=== PATIENT | female | born 1995 | race Caucasian/White ===

== ENCOUNTER 2017-06-26 06:36 | Day surgery (SDC) | payer BC ==
[2017-06-26] MEDS ORDERED: LR 1,000 ML IV ONE (06:44)
[2017-06-26] MEDS ORDERED: LIDOCAINE 1% 2 ML INJ ID PRN (06:44)
[2017-06-26] MEDS ORDERED: SILVER SULFADIAZINE 50 GM JAR TP ONE ×2 (07:06→08:15)
[2017-06-26] MEDS ORDERED: ACETIC ACID IRR SOLN 0.25% 1,000 ML BTL ONE (07:17)
[2017-06-26] MEDS ORDERED: MONSELS-FERRIC SUBSULFATE 8 GM SDV TP ONE (07:18)
[2017-06-26] MEDS ORDERED: POTASSIUM IODIDE/IODINE (LUGOL'S SOLN) 500 ML TP ONE (07:30)
--- NOTE | 2017-06-26 07:40 | PDANEPAE ---
ANE History of Present Illness laser of condyloma vulva ANE Past Medical History - Cardiovascular History Hx Hypertension: No Hx Arrhythmias: No Hx Chest Pain: No Hx Coronary Artery / Peripheral Vascular Disease: No Hx CHF / Valvular Disease: No Hx Palpitations: No Cardiovascular History Comment: pt states "she has a higher than normal resting hr" - Pulmonary History Hx COPD: No Hx Asthma/Reactive Airway Disease: No Hx Recent Upper Respiratory Infection: No Hx Oxygen in Use at Home: No Hx Sleep Apnea: No Sleep Apnea Screening Result - Last Documented: Negative - Neurologic History Hx Cerebrovascular Accident: No Hx Seizures: No Hx Dementia: No - Endocrine History Hx Diabetes: No - Renal History Hx Renal Disorders: No - Liver History Hx Hepatic Disorders: No - Neurological & Psychiatric Hx Hx Neurological and Psychiatric Disorders: Yes Neurological / Psychiatric History Comment: generalized anxiety disorder. adhd - Cancer History Hx Cancer: No - Congenital Disorder History Hx Congenital Disorders: No - GI History Hx Gastrointestinal Disorders: Yes Gastrointestinal History Comment: mother has ibs. diarrhea with stress - Other Health History Other Health History: wears glasses for distance only - Chronic Pain History Chronic Pain: No - Surgical History Prior Surgeries: wisdom teeth ANE Review of Systems Review of systems is: negative Review of Systems: - Exercise capacity METS (RN): 5 METS ANE Patient History - Allergies Allergies/Adverse Reactions: No Known Allergies Allergy (Verified 06/11/17 11:59) - Home Medications Home medications: home medication list seen and reviewed Home Medications: Cymbalta 06/11/17 [Last Taken 06/25/17] Herbals/Supplements -Info Only 06/11/17 [Last Taken 06/19/17] Klonopin PRN 06/11/17 [Last Taken 06/25/17] Ondansetron PRN 06/11/17 [Last Taken 06/19/17] Jessica Control 06/11/17 [Last Taken 06/25/17] - NPO status NPO Status: no food or drink >8 hours NPO Since - Liquids (Date): 06/26/17 NPO Since - Liquids (Time): 03:00 NPO Since - Solids (Date): 06/25/17 NPO Since - Solids (Time): 22:00 - Anes Hx Anes Hx: no prior problems - Smoking Hx Smoking Status: Light smoker - Family Anes Hx Family Anes Hx: none Family Hx Anesthesia Complications: none ANE Labs/Vital Signs - Vital Signs Vital Signs: reviewed preoperatively; see RN documention for details Blood Pressure: 119/75 Heart Rate: 75 Respiratory Rate: 16 O2 Sat (%): 97 Height: 162.56 cm Weight: 45.359 kg ANE Physical Exam - Airway Neck exam: FROM Mallampati Score: Class 1 - Pulmonary Pulmonary: no respiratory distress - Cardiovascular Cardiovascular: regular rate and rhythym - ASA Status ASA Status: II ANE Anesthesia Plan Anesthesia Plan: GA w LMA
[2017-06-26] MEDS ORDERED: MIDAZOLAM 2 MG/2 ML VIAL IVP ONE (07:53)
[2017-06-26] MEDS ORDERED: SILVER NITRATE APPLICATOR 1 APPL TP ONE ×2 (08:01→09:34)
--- NOTE | 2017-06-26 08:07 | PDHPUP ---
History & Physical Update H&P update statement: This history and physical update is based on an assessment of the patient which was completed after admission or registration (within 24 hours), but prior to the surgery/procedure. H&P update: H&P reviewed & patient examined
[2017-06-26] MEDS ORDERED: LIDOCAINE 2% 100 MG/5 ML SYR ONE (08:09)
[2017-06-26] MEDS ORDERED: DEXAMETHASONE 4 MG/ML VIAL ONE (08:09)
[2017-06-26] MEDS ORDERED: ONDANSETRON 4 MG/2 ML VIAL ONE (08:09)
[2017-06-26] MEDS ORDERED: PROPOFOL 200 MG/20 ML VIAL ONE (08:10)
[2017-06-26] MEDS ORDERED: fentaNYL 100 MCG/2 ML INJ ONE (08:10)
[2017-06-26] MEDS ORDERED: ALBUTEROL 3 ML DEYVIAL IH PRN (08:48)
[2017-06-26] MEDS ORDERED: PROMETHAZINE HCL 25 MG/ML INJ IVP PRN (08:48)
[2017-06-26] MEDS ORDERED: oxyCODONE IR 5 MG TAB PO PRN (08:48)
[2017-06-26] MEDS ORDERED: fentaNYL 100 MCG/2 ML INJ IVP PRN (08:48)
[2017-06-26] MEDS ORDERED: DEXAMETHASONE 4 MG/ML VIAL IVP PRN (08:48)
[2017-06-26] MEDS ORDERED: ACETAMINOPHEN 500 MG TAB PO PRN (08:48)
[2017-06-26] MEDS ORDERED: HYDROmorphONE/DILAUDID 2 MG/ML INJ IVP PRN (08:48)
[2017-06-26] MEDS ORDERED: MEPERIDINE 25 MG/0.5 ML AMP IVP PRN (08:48)
[2017-06-26] MEDS ORDERED: NALOXONE HCL 0.4 MG/ML INJ IVP PRN (08:48)
[2017-06-26] MEDS ORDERED: HYDROCODONE/APAP 5/325 TAB PO PRN (08:48)
[2017-06-26] MEDS ORDERED: ONDANSETRON 4 MG/2 ML VIAL IVP PRN (08:48)
--- NOTE | 2017-06-26 08:48 | POSTANESTH ---
Post Anesthetic Evaluation Cardiovascular Status: Normal, Stable, Similar to Pre-Op Cond Respiratory Status: Normal, Stable, Similar to Pre-op Cond. Level of Consciousness/Mental Status: Can Participate in Eval, Mildly Sleepy, Arousable Pain Control: Adequate, Prn Tx Ordered Nausea/Vomiting Control: Adequate, Prn Tx Ordered Complications Possibly Related to Anesthesia: None Noted
[2017-06-26] MEDS ORDERED: KETOROLAC 30 MG/1 ML SDV ONE (09:02)
[2017-06-26 10:20] VITALS: BP 112/73
--- NOTE | 2017-06-26 10:20 | POSTOPPROG ---
Post Op Note Date of Operation: 06/26/17 Surgeon: Lidia Mukherjee Anesthesiologist: Jaden Linares Anesthesia: LMA Pre-op Diagnosis: vulvar condyloma Post-op Diagnosis: vulvar condyloma Indication: vulvar condyloma Procedure: laser ablation of vulvar condyloma Findings: extensive small warts thorughout Inf/Abcess present in the surg proc area at time of surgery?: No EBL: Minimal
--- NOTE | 2017-06-26 16:33 | GOP ---
[f rep st] OPERATIVE REPORT DATE OF OPERATION: 06/26/2017 SURGEON: Lidia Mukherjee MD ANESTHESIA: Dr. Cameron, general with LMA. 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 PROCEDURE PERFORMED: Laser ablation of vulvar condylomata. FINDINGS: Multiple small condylomata throughout the labia minora and majora, most notably on the rig ht. There are some at the introitus and on the vestibule, and they are all measuring about 2-3 mm ea ch, and in total, there probably about 50 very small condylomata. Inspection of the vagina showed no significant internal condylomata. DESCRIPTION OF PROCEDURE: With informed consent signed, patient taken to the operating room, placed under general anesthesia, placed in a high dorsal lithotomy position, prepped and draped in usual travis rile fashion. Entire vulva was bathed in acetic acid, and colposcopy done of the inside the vagina f or any aceto-white lesions. Once it was felt that most of the lesions were external, the CO2 laser w as activated and self-test was done on the on the tongue blade, and then the laser was set to a spot size of 2. The laser was set to ultra pulse and at 9 cox and then laser done to the tissue of the condylomata until they were wiped clean and there was just underlying dermis inflammation. Hemostasi s was noted. Attempts to go back and repeat ablation over some of the sites done to make sure that a ll tissue had been treated. Once it was felt that this was done, Silvadene cream placed on the entir e area. Patient placed in supine position, awakened in the operating room, taken to recovery room in stable condition, tolerated the procedure well. INDICATIONS FOR PROCEDURE: Patient is a -[id number] who was referred by Mahin for evalu ation and treatment of worsening vulvar condyloma. She has done a trial of Aldara that caused worse pain and burning, and the condylomata have worsened over the last 2 months, and patient desires defin itive treatment in the operating room. COMPLICATIONS: None. /[id number]/MODL
== END 2017-06-26 10:45 | disposition home or self-care (01) ==
LOC: FSGY 06:36
PROVIDERS: ATTEND Obstetrics & Gynecology Gynecology
PROC: 0U5MXZZ Destruction of Vulva, External Approach (ICD-10-PCS; principal; 2017-06-26 08:00)
DX: A63.0 Anogenital (venereal) warts (principal); F17.210 Nicotine dependence, cigarettes, uncomplicated
CPT/HCPCS: J1100; J1885; J2001; J2250; J2405; J2704; J3010